=== PATIENT | female | born 2000 | race American Indian/Alaskan Native ===

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

== ENCOUNTER 2021-10-19 01:36 | Emergency (ER) | payer MEDICAID ==
[2021-10-19 06:49] LABS: HCG Qualitative,Urine Positive (Negative)
[2021-10-19 06:53] LABS: Bacteria,Urine 2+ /HPF (Negative); Mucus,Urine 3+ /HPF
[2021-10-19 06:54] LABS: Color,Urine Yellow (Yellow); WBC,Urine > 182.0 /HPF (0.0-6.0)
[2021-10-19 06:55] LABS: Bilirubin,Urine Negative (Negative); Blood,Urine Moderate (Negative); Urobilinogen,Urine < 2.0 mg/dL (<2.0)
--- NOTE | 2021-10-19 08:41 | Emergency Department Report ---
ED Female HPI - General Chief complaint: Urogenital-Female Stated complaint: VAGINAL PAIN Source: patient Mode of arrival: Stretcher Limitations: No Limitations - History of Present Illness Initial comments: 21-year-old female presents to the emergency department with pain in her vagina. Patient reports "sharp pain in her vagina not her abdomen hurts when she tries to urinate going on for 3 days. Symptoms associated with vaginal discharge And dysuria no nausea vomiting or diarrhea, also reports that she is , took a but test at home. Last menstrual period was sometime in July or August. No chest pain, no shortness of breath, no weakness dizziness, no nausea or vomiting, no flank pain, MD Complaint: vaginal discharge, dysuria, other (vaginal pain x 3 days) -: Gradual, days(s) Location: labia, perineum Quality: cramping Improves with: none Worsens with: urination Are you Now?: Yes Associated Symptoms: vaginal discharge - Related Data Sexually active: Yes : 3 Para: 1 A: 1 Previous Rx's Medication Instructions Recorded Last Taken Type Albuterol Sulfate [Ventolin Hfa] 1 gm IH Q4H PRN #1 hfa.aer.ad 06/24/17 Unknown Rx Lidocaine [Lidocaine GEL] 10 gm TP TID #1 10/19/21 Unknown Rx Nystatin Cream [Mycostatin Cream] 1 applic TP TID #1 tube 10/19/21 Unknown Rx Prenat 115/Iron Fum/Folic/Dss 1 each PO DAILY #30 10/19/21 Unknown Rx [Pnv-Ferrous Fexheqmg-Ncrt-LY] metroNIDAZOLE [Flagyl] 500 mg PO Q8HR 10 Days tablet 10/19/21 Unknown Rx Allergies Allergy/AdvReac Type Severity Reaction Status Date / Time No Known Allergies Allergy Unverified 06/24/17 10:04 ED Review of Systems ROS: Stated complaint: VAGINAL PAIN Other details as noted in HPI Constitutional: no symptoms reported Eyes: as per HPI Respiratory: no symptoms reported Cardiovascular: as per HPI. denies: chest pain Endocrine: no symptoms reported Gastrointestinal: as per HPI. denies: abdominal pain, nausea, vomiting Genitourinary: dysuria, hematuria, discharge Musculoskeletal: as per HPI Neurological: denies: headache, weakness Psychiatric: denies: anxiety, depression ED Past Medical Hx - Past Medical History Previous Medical History?: No - Surgical History Past Surgical History?: No - Social History Smoking Status: Never Smoker Substance Use Type: None - Medications Home Medications: Home Medications Medication Instructions Recorded Confirmed Last Taken Type Albuterol Sulfate [Ventolin Hfa] 1 gm IH Q4H PRN #1 hfa.aer.ad 06/24/17 Unknown Rx Lidocaine [Lidocaine GEL] 10 gm TP TID #1 10/19/21 Unknown Rx Nystatin Cream [Mycostatin Cream] 1 applic TP TID #1 tube 10/19/21 Unknown Rx Prenat 115/Iron Fum/Folic/Dss 1 each PO DAILY #30 10/19/21 Unknown Rx [Pnv-Ferrous Zndzdrmv-Kqny-FP] metroNIDAZOLE [Flagyl] 500 mg PO Q8HR 10 Days tablet 10/19/21 Unknown Rx ED Physical Exam - General Limitations: No Limitations General appearance: alert, in no apparent distress - Eye Eye exam: Present: normal appearance - ENT ENT exam: Present: normal exam, normal orophraynx, mucous membranes dry - GI/Abdominal GI/Abdominal exam: Present: soft, normal bowel sounds. Absent: distended, tenderness - External exam: Present: erythema, swelling Speculum exam: Present: erythema (There is erythema swelling tenderness of the labia with foul odor and discharge), vaginal discharge, other (No internal speculum exam patient could not tolerate it declined and stated it is not inside her chest at the outside) - Extremities Exam Extremities exam: Present: normal inspection, full ROM - Back Exam Back exam: Present: normal inspection, full ROM - Neurological Exam Neurological exam: Present: alert, oriented X3 - Psychiatric Psychiatric exam: Present: normal affect, normal mood - Skin Skin exam: Present: warm, dry, intact ED Course Vital Signs 10/19/21 10/19/21 10/19/21 01:38 08:23 10:01 Temperature 98.1 F Pulse Rate 85 84 Respiratory 18 Rate Blood Pressure 132/70 Blood Pressure 117/62 [Left] O2 Sat by Pulse 99 98 100 Oximetry - Reevaluation(s) Reevaluation #1: 10/19/21 1130-patient has remained stable throughout ED course, drinking eating and tolerating oral intake ambulating steadily. ED Medical Decision Making - Medical Decision Making 21-year-old female presents to the emergency department with pain in her vagina. Patient reports "sharp pain in her vagina not her abdomen hurts when she tries to urinate going on for 3 days. Symptoms associated with vaginal discharge And dysuria no nausea vomiting or diarrhea, also reports that she is , took a but test at home. Last menstrual period was sometime in July or August. No chest pain, no shortness of breath, no weakness dizziness, no nausea or vomiting, no flank pain [id number] test was positive for , positive for trichomonas. Based on her history and exam we will treat for trichomoniasis with Flagyl, I also covered empirically for gonorrhea and chlamydia with Rocephin and azithromycin. Patient has no OB related complaints, no pelvic pain or abdominal pain, no na usea or vomiting, most likely is quite early based on her estimated last menstrual period, no indication for an ultrasound at this time, however prescribed some vitamins as well strictly encouraged to abstain from sex make sure to notify partners to get tested and is follow-up with OB for care. Discussed all of this with patient including return precautions with understanding at the time of discharge is stable ambulates steadily. No guarding. Critical care attestation.: If time is entered above; I have spent that time in minutes in the direct care of this critically ill patient, excluding procedure time. ED Disposition Clinical Impression: Positive test, Trichomonal vaginitis during , STD (sexually transmitted disease) Disposition: 01 HOME / SELF CARE / HOMELESS Is pt being admited?: No Does the pt Need Aspirin: No Condition: Stable Instructions: Care, Trichomoniasis Additional Instructions: Make sure you follow-up with OB for further testing and evaluation, no sexual activity until cleared by OB, finish all your antibiotics. You may use the topical cream as needed for the pain and discomfort in the genital area Prescriptions: metroNIDAZOLE [Flagyl] 500 mg PO Q8HR 10 Days tablet Lidocaine [Lidocaine GEL] 10 gm TP TID #1 Nystatin Cream [Mycostatin Cream] 1 applic TP TID #1 tube Prenat 115/Iron Fum/Folic/Dss [Pnv-Ferrous Lzisrbfm-Vnky-OA] 1 each PO DAILY #30 Referrals: SARAH ROJAS MD [Primary Care Provider] - 3-5 Days MARIELLA PARR MD [Staff Physician] - 3-5 Days
[2021-10-19 10:01] VITALS: BP 117/62
[2021-10-19] MEDS ORDERED: ACETAMINOPHEN 325 MG TAB PO ONE (10:22)
[2021-10-19] MEDS ORDERED: LIDOCAINE-MPF (1%) 10 MG/1 ML VIAL 5 ML INFILTRATI ONE (10:31)
[2021-10-19] MEDS ORDERED: AZITHROMYCIN 250 MG TAB PO ONE (10:48)
== END 2021-10-19 11:15 | disposition home or self-care (01) ==
LOC: ED 01:36
DX: Z32.01 Encounter for pregnancy test, result positive (principal); A59.01 Trichomonal vulvovaginitis; O98.311 Other infections with a predominantly sexual mode of transmission complicating pregnancy, first trimester; Z3A.00 Weeks of gestation of pregnancy not specified
CPT/HCPCS: 81001; 81025; 87086; 87210; 87591; 96372; 99284; J0696; J3490

== ENCOUNTER 2021-10-31 10:56 | Emergency (ER) | payer MEDICAID ==
[2021-10-31 15:25] LABS: Alanine Aminotransferase 28 units/L (7-56); Albumin 4.9 g/dL (3.9-5); BUN/Creatinine Ratio 16; Basophils % (Auto) 0.3 % (0.0-1.8); Blood Urea Nitrogen 13 mg/dL (7-17); Calcium 10.2 mg/dL (8.4-10.2); Eosinophils % (Auto) 0.2 % (0.0-4.3); Hemolysis Index 0; Lymphocytes # (Auto) 2.2 K/mm3 (1.2-5.4); Lymphocytes % (Auto) 16.3 % (13.4-35.0); Mean Corpuscular HGB Conc 30 % (30-34); Monocytes # (Auto) 0.8 K/mm3 (0.0-0.8); Platelet Count 214 K/mm3 (140-440); Red Blood Count 5.39 M/mm3 (3.65-5.03)
[2021-10-31 15:27] LABS: Hematocrit 35.1 % (30.3-42.9); Hemoglobin 10.5 gm/dl (10.1-14.3); Mean Corpuscular Volume 65 fl (79-97); Red Cell Distribution Width 20.6 % (13.2-15.2)
[2021-11-01] MEDS ORDERED: ONDANSETRON 4 MG ODT TAB PO ONE (00:06)
[2021-11-01] MEDS ORDERED: ACETAMINOPHEN 500 MG TAB PO ONE (00:07)
[2021-11-01] MEDS ORDERED: FAMOTIDINE 20 MG TAB PO ONE (00:07)
--- NOTE | 2021-11-01 01:00 | Emergency Department Report ---
ED N/V/D HPI - General Chief complaint: Nausea/Vomiting/Diarrhea Stated complaint: N/V DIARRHEA X4DAYS Source: patient, EMS Mode of arrival: Ambulatory Limitations: No Limitations - History of Present Illness Initial comments: Patient is a A1 21-year-old -[place] female who is approximately 9 weeks gestation presents to the ED with complaint of acute onset persistent nausea and vomiting for the last 3 days, worse in the last 24 hours. Patient states that she has not been able to keep anything down because of persistent nausea and vomiting. Patient also complains of headache and body aches and pains. Patient denies diarrhea, abdominal pain, fever, chills, cough, sore throat, nasal and sinus congestion, dysuria, urinary frequency and urgency, vaginal bleeding or vaginal discharge, low back pain, chest pain or shortness of breath. MD complaint: nausea, vomiting, other (approximately 9 weeks gestation) -: days(s) (3) Description of Vomiting: food contents, watery, bilious Associated Abdominal Pain: No Location: diffuse Radiation: none Severity: moderate Pain Scale: 6 Quality: aching, dull Consistency: intermittent Improves with: none Worsens with: eating, vomiting Context: other (Hyperemesis gravidarum) Associated Symptoms: denies other symptoms, loss of appetite, malaise, nausea/vomiting. denies: myalgias, chest pain, cough, diaphoresis, fever/chills, headaches, rash, dysuria, shortness of breath, syncope, weakness - Related Data Previous Rx's Medication Instructions Recorded Last Taken Type Albuterol Sulfate [Ventolin Hfa] 1 gm IH Q4H PRN #1 hfa.aer.ad 06/24/17 Unknown Rx Lidocaine [Lidocaine GEL] 10 gm TP TID #1 10/19/21 Unknown Rx Nystatin Cream [Mycostatin Cream] 1 applic TP TID #1 tube 10/19/21 Unknown Rx Prenat 115/Iron Fum/Folic/Dss 1 each PO DAILY #30 10/19/21 Unknown Rx [Pnv-Ferrous Mwtuyfed-Uyrx-YS] metroNIDAZOLE [Flagyl] 500 mg PO Q8HR 10 Days tablet 10/19/21 Unknown Rx Acetaminophen [Tylenol] 500 mg PO Q6HR PRN #30 tablet 11/01/21 Unknown Rx Promethazine [Phenergan] 25 mg PO Q6HR PRN #30 tab 11/01/21 Unknown Rx Promethazine [Phenergan] 25 mg [place] QHS PRN #20 supp 11/01/21 Unknown Rx Allergies Allergy/AdvReac Type Severity Reaction Status Date / Time No Known Allergies Allergy Unverified 10/31/21 11:03 ED Review of Systems ROS: Stated complaint: N/V DIARRHEA X4DAYS Other details as noted in HPI Constitutional: denies: chills, fever Eyes: denies: eye pain, eye discharge, vision change ENT: denies: ear pain, throat pain Respiratory: denies: cough, shortness of breath, wheezing Cardiovascular: denies: chest pain, palpitations Endocrine: no symptoms reported Gastrointestinal: nausea, vomiting. denies: abdominal pain, diarrhea Genitourinary: denies: urgency, dysuria, discharge Musculoskeletal: denies: back pain, joint swelling, arthralgia Skin: denies: rash, lesions Neurological: denies: headache, weakness, paresthesias Psychiatric: denies: anxiety, depression Hematological/Lymphatic: denies: easy bleeding, easy bruising ED Past Medical Hx - Social History Smoking Status: Never Smoker Substance Use Type: None - Medications Home Medications: Home Medications Medication Instructions Recorded Confirmed Last Taken Type Albuterol Sulfate [Ventolin Hfa] 1 gm IH Q4H PRN #1 hfa.aer.ad 06/24/17 Unknown Rx Lidocaine [Lidocaine GEL] 10 gm TP TID #1 10/19/21 Unknown Rx Nystatin Cream [Mycostatin Cream] 1 applic TP TID #1 tube 10/19/21 Unknown Rx Prenat 115/Iron Fum/Folic/Dss 1 each PO DAILY #30 10/19/21 Unknown Rx [Pnv-Ferrous Sugzfsud-Olsh-AR] metroNIDAZOLE [Flagyl] 500 mg PO Q8HR 10 Days tablet 10/19/21 Unknown Rx Acetaminophen [Tylenol] 500 mg PO Q6HR PRN #30 tablet 11/01/21 Unknown Rx Promethazine [Phenergan] 25 mg PO Q6HR PRN #30 tab 11/01/21 Unknown Rx Promethazine [Phenergan] 25 mg [place] QHS PRN #20 supp 11/01/21 Unknown Rx ED Physical Exam - General Limitations: No Limitations General appearance: alert, in no apparent distress - Head Head exam: Present: atraumatic, normocephalic, normal inspection - Eye Eye exam: Present: normal appearance, PERRL, EOMI Pupils: Present: normal accommodation - ENT ENT exam: Present: normal exam, normal orophraynx, mucous membranes moist, TM's normal bilaterally, normal external ear exam - Neck Neck exam: Present: normal inspection, full ROM. Absent: tenderness - Respiratory Respiratory exam: Present: normal lung sounds bilaterally. Absent: respiratory distress, wheezes, rales, rhonchi, chest wall tenderness, accessory muscle use, decreased breath sounds, prolonged expiratory - Cardiovascular Cardiovascular Exam: Present: regular rate, normal rhythm, normal heart sounds. Absent: systolic murmur, diastolic murmur, rubs, gallop - GI/Abdominal GI/Abdominal exam: Present: soft, normal bowel sounds. Absent: tenderness, guarding, rebound, hyperactive bowel sounds, hypoactive bowel sounds, mass - Extremities Exam Extremities exam: Present: normal inspection, full ROM, normal capillary refill. Absent: tenderness, pedal edema, joint swelling - Back Exam Back exam: Present: normal inspection, full ROM. Absent: tenderness, CVA tenderness (R), CVA tenderness (L), muscle spasm, paraspinal tenderness, vertebral tenderness - Neurological Exam Neurological exam: Present: alert, oriented X3, CN II-XII intact, normal gait, reflexes normal - Psychiatric Psychiatric exam: Present: normal affect, normal mood - Skin Skin exam: Present: warm, dry, intact, normal color. Absent: rash ED Course Vital Signs 10/31/21 11:01 Temperature 98.6 F Pulse Rate 90 Respiratory 17 Rate Blood Pressure 122/76 [Left] O2 Sat by Pulse 99 Oximetry ED Medical Decision Making - Lab Data Result diagrams: 10/31/21 14:15 10/31/21 14:15 - Medical Decision Making This is a A1 21-year-old -[place] female who is approximately 9 weeks gestation presents to the ED with complaint of acute onset persistent nausea and vomiting for the last 3 days, worse in the last 24 hours. Patient states that she has not been able to keep anything down because of persistent nausea and vomiting. Patient also complains of headache and body aches and pains. In the ED, patient is alert and oriented x3 and is not in any distress. Patient is hemodynamically stable. Lab test results were reviewed and showed acute leukocytosis of 13,200, the rest of the lab test results are nonactionable. Patient declined urinalysis test. Patient was treated for nausea and vomiting in the ED and discharged home on medications for nausea and vomiting. Patient was advised to follow-up with [facility] physician in 5 to 7 days for reevaluation or return to the ED immediately if symptoms get worse. - Differential Diagnosis Hyperemesis gravidarum; dehydration; GERD; UTI Critical care attestation.: If time is entered above; I have spent that time in minutes in the direct care of this critically ill patient, excluding procedure time. ED Disposition Clinical Impression: Hyperemesis gravidarum, Nausea and vomiting during prior to 22 weeks gestation Disposition: HOME / SELF CARE / HOMELESS Is pt being admited?: No Does the pt Need Aspirin: No Condition: Stable Instructions: Nausea and Vomiting, Adult, [id number], Morning Sickness, [id number], Hyperemesis Gravidarum Additional Instructions: All lab test results were reviewed and are all nonactionable. Therefore maintain a clear liquid diet for 12 to 24 hours, drink plenty of fluids, take medication as advised and follow-up with your [facility] physician in 5 to 7 days for reevaluation. Return to the ED immediately if symptoms get worse. Prescriptions: Promethazine [Phenergan] 25 mg W[place] QHS PRN #20 supp PRN Reason: Nausea And Vomiting Acetaminophen [Tylenol] 500 mg PO Q6HR PRN #30 tablet PRN Reason: Pain , Severe (7-10) Promethazine [Phenergan] 25 mg PO Q6HR PRN #30 tab PRN Reason: Nausea Referrals: TANYA AGUILLON MD [Staff Physician] - 3-5 Days Time of Disposition: 01:00 Print Language: KINYARWANDA
[2021-11-01 02:20] VITALS: BP 118/78
== END 2021-11-01 02:15 | disposition home or self-care (01) ==
LOC: ED 10:56
DX: O21.1 Hyperemesis gravidarum with metabolic disturbance (principal); O21.9 Vomiting of pregnancy, unspecified; Z3A.22 22 weeks gestation of pregnancy
CPT/HCPCS: 36415; 80053; 83690; 84702; 85025; 99283; J3490; Q0162